=== PATIENT | female | born 1945 ===

== ENCOUNTER → 2023-04-14 | Outpatient (CLI) | payer MEDICARE | LOC: LAB SHORT 11:00 → LAB 11:00 | DX: N39.0 Urinary tract infection, site not specified (principal) | CPT/HCPCS: 87086 ==

== ENCOUNTER → 2023-07-31 | Outpatient (CLI) | payer MEDICARE | END | disposition home or self-care (01) | LOC: LAB 18:13 → LAB SHORT 18:13 | DX: R30.0 Dysuria (principal) | CPT/HCPCS: 87086 ==

== ENCOUNTER → 2023-11-20 | Outpatient (CLI) | payer MEDICARE ==
[2023-11-20 15:11] LABS: Source, Urine Clean Catch
[2023-11-20 15:16] LABS: Appearance, Urine Clear (Clear); Bilirubin, Urine Neg (Neg); Blood, Urine Neg (Neg); Color, Urine Yellow (P-Yellow); Glucose Qualitative, Urine Neg (Neg); Ketones, Urine Neg (Neg); Leukocyte Esterase, Urine Neg (Neg); Nitrite, Urine Neg (Neg); Protein, Urine Neg (Neg); Urobilinogen, Urine NORM (Normal)
== END | disposition home or self-care (01) ==
LOC: LAB SHORT 09:20 → LAB 09:20
PROVIDERS: Family Medicine
DX: R30.0 Dysuria (principal)
CPT/HCPCS: 81003

== ENCOUNTER 2024-07-18 07:36 | Day surgery (SDC) | payer MEDICARE ==
[~2024-07-18] VITALS: Ht 162.6 cm; Wt 73.2 kg
[2024-07-18] MEDS ORDERED: CeFAZolin Sodium 2,000 MG VIAL ONE (08:06)
[2024-07-18] MEDS ORDERED: Lactated Ringer's 1,000 ML IV ONE ×2 (08:06→08:35)
[2024-07-18] MEDS ORDERED: Bupivacaine 0.5% W/EPI 1:200000 SDV 30 ML Vial ONE (08:27)
[2024-07-18] MEDS ORDERED: PREG75 PO ×2 (08:27→08:30)
[2024-07-18] MEDS ORDERED: Robaxin750 MG PO (08:29)
[2024-07-18] MEDS ORDERED: METO25ER PO (08:31)
[2024-07-18] MEDS ORDERED: ASPI81CH PO (08:31)
[2024-07-18] MEDS ORDERED: ACYC400 PO (08:32)
[2024-07-18] MEDS ORDERED: MYRBETRIQ25 MG PO (08:32)
[2024-07-18] MEDS ORDERED: FentaNYL Citrate 50 MCG/ML 2 ML Injection ONE (08:51)
[2024-07-18] MEDS ORDERED: Ondansetron HCl 2 MG / ML 2ML Vial ONE (08:51)
[2024-07-18] MEDS ORDERED: propofoL 20 ML IV ONE (08:51)
[2024-07-18] MEDS ORDERED: Rocuronium Bromide 10 MG/ML 5ML Injection IV ONE (08:51)
[2024-07-18] MEDS ORDERED: Dexamethasone Sod Phos 10 MG/ML 1ML VIAL ONE (08:51)
[2024-07-18] MEDS ORDERED: LANS30EC PO (08:55)
[2024-07-18] MEDS ORDERED: Ketorolac Tromethamine 30mg Vial ONE (10:49)
[2024-07-18] MEDS ORDERED: HYDROmorphone HCl/Pf 1MG SYR ONE (11:14)
[2024-07-18] MEDS ORDERED: HYDROcodone 5-APAP 325 TAB ONE (11:15)
--- NOTE | 2024-07-18 11:26 | NUR ---
07/18/24 1126 Radha Mayes PT STATED THAT HER PAIN LEVEL WAS A 8/10. PO HYDROCODONE/APA 5/325MG GIVEN AT 1120 IV TORADOL 30ML GIVEN TO BEGIN WITH AT 1100. IV DILAUDID 1MG GIVEN PUSHED SLOWLY VIA IV AT 1127.
[2024-07-18 11:32] VITALS: BP 134/50
== END 2024-07-18 11:47 | disposition home or self-care (01) ==
LOC: ORSCSDS 07:36
PROVIDERS: Podiatrist Foot & Ankle Surgery
PROC: 0SGK04Z Fusion of Right Tarsometatarsal Joint with Internal Fixation Device, Open Approach (ICD-10-PCS; principal; 2024-07-18 09:30)
DX: M21.611 Bunion of right foot (principal); M72.2 Plantar fascial fibromatosis; K21.9 Gastro-esophageal reflux disease without esophagitis; I48.91 Unspecified atrial fibrillation; Z79.82 Long term (current) use of aspirin; E78.5 Hyperlipidemia, unspecified; F41.9 Anxiety disorder, unspecified; F32.A Depression, unspecified; Z79.899 Other long term (current) drug therapy
CPT/HCPCS: A9270; C1713; J0690; J1100; J1171; J1885; J2405; J2704; J3010; J7120

== ENCOUNTER 2024-10-08 10:12 | Day surgery (SDC) | payer MEDICARE ==
[~2024-10-08] VITALS: Ht 162.6 cm; Wt 74.1 kg
[~2024-10-08 10:12] MED LIST: ACYC400 PO; ASPI81CH PO; Balanced Salt Epinephrine Irrigation Solution 500 mL IR SCH; LANS30EC PO; METO25ER PO; MYRBETRIQ25 MG PO; Moxifloxacin HCL 0.5 MG/0.1 ML 0.4MLSYR RIGHTEYE SCH; Ondansetron 4 MG SoluTab MM PRN; PHENYLEPHRINE\\TROPICAMIDE\\TETRACAINE OPHTHALMIC DILATING SOLN RIGHTEYE PRN; PREG75 PO; Povidone-Iodine 450 DROP/30 ML Solution ONE; Povidone-Iodine 450 DROP/30 ML Solution RIGHTEYE SCH; Robaxin750 MG PO; Tetracaine HCl/Pf 0.5% Opth Soln 4 ml ONE
[2024-10-08] MEDS ORDERED: ATOR20 (11:22)
--- NOTE | 2024-10-08 11:28 | NUR ---
10/08/24 1128 Temitope Garay: 1116 VIVIAN: 1118
[2024-10-08] MEDS ORDERED: Tetracaine HCl 0.5% Opth Soln 15 ml RIGHTEYE ONE (11:52)
--- NOTE | 2024-10-08 11:57 | NUR ---
10/08/24 1157 Bertin Frost N 112/55 99% 10L BLOW BY O2 58 [address] BARRY, NO SIGNS OF DISCOMFORT OR DISTRESS AT THIS TIME.
[2024-10-08 12:19] VITALS: BP 118/54
== END 2024-10-08 12:24 | disposition home or self-care (01) ==
LOC: ORSCSDS 10:12
PROVIDERS: Student in an Organized Health Care Education/Training Program
PROC: 08RJ3JZ Replacement of Right Lens with Synthetic Substitute, Percutaneous Approach (ICD-10-PCS; principal; 2024-10-08 12:00)
DX: H25.811 Combined forms of age-related cataract, right eye (principal); H35.3132 Nonexudative age-related macular degeneration, bilateral, intermediate dry stage; H43.813 Vitreous degeneration, bilateral; I10 Essential (primary) hypertension; E78.00 Pure hypercholesterolemia, unspecified; Z79.82 Long term (current) use of aspirin; Z79.899 Other long term (current) drug therapy
CPT/HCPCS: A9270; V2632

== ENCOUNTER 2024-10-14 07:11 | Day surgery (SDC) | payer MEDICARE ==
[~2024-10-14] VITALS: Ht 162.6 cm; Wt 74.1 kg
[~2024-10-14 07:11] MED LIST changes: +ATOR20; +Moxifloxacin HCL 0.5 MG/0.1 ML 0.4MLSYR LEFTEYE SCH; -Moxifloxacin HCL 0.5 MG/0.1 ML 0.4MLSYR RIGHTEYE SCH; +PHENYLEPHRINE\\TROPICAMIDE\\TETRACAINE OPHTHALMIC DILATING SOLN LEFTEYE PRN; -PHENYLEPHRINE\\TROPICAMIDE\\TETRACAINE OPHTHALMIC DILATING SOLN RIGHTEYE PRN; +Povidone-Iodine 450 DROP/30 ML Solution LEFTEYE SCH; -Povidone-Iodine 450 DROP/30 ML Solution RIGHTEYE SCH
--- NOTE | 2024-10-14 07:39 | NUR ---
10/14/24 0739 Evangelist Vigil CALL LIGHT WITHIN REACH. EYE DROPS IN AT AROUND 0739. PT ON CONTINOUS PULSE OXIMETER FOR MONITORING.
--- NOTE | 2024-10-14 08:27 | NUR ---
10/14/24 0827 Radha Krause 0820: HR:56 RR: 12 BP: 121/51 SPO2: 100% ON BLOW BY O2
--- NOTE | 2024-10-14 08:40 | NUR ---
10/14/[address] AT BEDSIDE
[2024-10-14 08:41] VITALS: BP 121/57
== END 2024-10-14 09:00 | disposition home or self-care (01) ==
LOC: ORSCSDS 07:11
PROVIDERS: Student in an Organized Health Care Education/Training Program
PROC: 08RK3JZ Replacement of Left Lens with Synthetic Substitute, Percutaneous Approach (ICD-10-PCS; principal; 2024-10-14 09:00)
DX: H25.812 Combined forms of age-related cataract, left eye (principal); Z96.1 Presence of intraocular lens; I10 Essential (primary) hypertension; E78.00 Pure hypercholesterolemia, unspecified; R01.1 Cardiac murmur, unspecified; Z79.82 Long term (current) use of aspirin; Z79.899 Other long term (current) drug therapy
CPT/HCPCS: A9270; V2632

== ENCOUNTER → 2025-01-24 | Outpatient (CLI) | payer MEDICARE ==
[~2025-01-24] MED LIST changes: -Balanced Salt Epinephrine Irrigation Solution 500 mL IR SCH; -Moxifloxacin HCL 0.5 MG/0.1 ML 0.4MLSYR LEFTEYE SCH; -Ondansetron 4 MG SoluTab MM PRN; -PHENYLEPHRINE\\TROPICAMIDE\\TETRACAINE OPHTHALMIC DILATING SOLN LEFTEYE PRN; -Povidone-Iodine 450 DROP/30 ML Solution LEFTEYE SCH; -Povidone-Iodine 450 DROP/30 ML Solution ONE; -Tetracaine HCl/Pf 0.5% Opth Soln 4 ml ONE
== END ==
LOC: LAB 17:09 → LAB SHORT 17:09
DX: N39.0 Urinary tract infection, site not specified (principal)
CPT/HCPCS: 87077; 87086; 87186